=== PATIENT | male | born 1990 | race Two or more races ===

== ENCOUNTER 2023-09-23 16:18 | Emergency (ER) | payer SELFPAY ==
[~2023-09-23] VITALS: Ht 175.3 cm; Wt 167.8 kg
[2023-09-23] MEDS ORDERED: IBUP-1455 PO (18:37)
[2023-09-23] MEDS ORDERED: CEPH500C PO (18:37)
[2023-09-23] MEDS ORDERED: BACDST PO (18:37)
[2023-09-23 18:51] LABS: Urine Bacteria FEW /hpf (None Seen); Urine Blood 2+ /uL (Negative); Urine Budding Yeast FEW /hpf (None Seen); Urine Clarity Turbid (Clear); Urine Color Light-Orange (Yellow); Urine Protein, UAD 1+ (Negative); Urine Urobilinogen Normal (Negative); Urine WBC 41 /hpf (0 - 3); Urine pH 5.5 (5.0-9.0)
[2023-09-23 18:57] VITALS: BP 151/90; PULSE 139; RESP 20; TEMP 100.6; O2SAT 96
[2023-09-23] MEDS: KETOROLAC TROMETH 30 MG/ML 1ML VIAL IM ONE (19:24)
[2023-09-23] MEDS: cefTRIAXone SOD 1,000 MG VL IM ONE (19:24)
== END 2023-09-23 19:35 | disposition home or self-care (01) ==
LOC: ER 16:18
DX: L02.214 Cutaneous abscess of groin (principal); E11.9 Type 2 diabetes mellitus without complications
CPT/HCPCS: 81001; 96372; 99284; J0696; J1885

== ENCOUNTER → 2024-05-17 | Day surgery (SDC) | payer MEDICAID ==
[2024-05-14 11:03] LABS: Urine Bacteria None Seen /hpf (None Seen)
[2024-05-14 11:21] LABS: Urine Blood TRACE /uL (Negative); Urine Clarity Clear (Clear); Urine Color Light-Yellow (Yellow); Urine Protein, UAD Negative (Negative); Urine Urobilinogen Normal (Negative); Urine WBC 6 /hpf (0 - 3)
[2024-05-14 11:28] LABS: Basophils # (auto) 0 10 ^3/uL (0-0.2); Basophils % (auto) 0.4 % (0.0-2.0); Eosinophils # (auto) 0.2 10 ^3/uL (0-0.8); Eosinophils % (auto) 1.8 % (0.0-7.0); Hematocrit 46.6 % (41.0-53.0); Hemoglobin 15.5 g/dL (13.5-17.5); Lymphocytes # (auto) 3.8 10 ^3/uL (0.4-5.4); Lymphocytes % (auto) 36.6 % (10.0-50.0); Mean Corpuscular Hemoglobin 30.6 pg (28.0-32.0); Mean Corpuscular Hgb Conc. 33.3 g/dL (32.0-36.0); Mean Corpuscular Volume 91.8 fL (80.0-100.0); Monocytes # (auto) 0.7 10 ^3/uL (0-1.3); Monocytes % (auto) 6.5 % (0.0-12.0); Neutrophils # (auto) 5.7 10 ^3/uL (1.6-8.6); Neutrophils % (auto) 54.7 % (37.0-80.0); Platelet Count (auto) 248 10^3/uL (140-450); Red Blood Cells 5.07 10^6/uL (4.5-5.90); Red Cell Distribution Width 14.4 % (11.8-14.3); White Blood Cell 10.4 10^3/uL (4.4-10.8)
[2024-05-14 11:44] LABS: INR 0.97 (0.9-1.15); Partial Thromboplastin Time 27.6 SEC (24.5-34.5); Prothrombin Time 10.3 sec (9.3-11.8)
[2024-05-14 12:06] LABS: Anion Gap 5 (5-15); Aspartate Aminotransferase 20 U/L (13-40); BUN/Creatinine Ratio 19.6 (10.0-20.0); Blood Urea Nitrogen 18 mg/dL (9-23); Calcium 9.7 mg/dL (8.7-10.4); Carbon Dioxide 28 mmol/L (20-31); Chloride 102 mmol/L (98-107); Potassium 4.4 mmol/L (3.5-5.1)
[2024-05-14 12:07] LABS: Albumin 4.3 g/dL (3.2-4.8); Bilirubin, Total 0.7 mg/dL (0.2-1.0); Total Protein 7.5 g/dL (5.7-8.2)
[2024-05-14 12:09] LABS: Alanine Aminotransferase 52 U/L (7-40); Alkaline Phosphatase 135 U/L (46-116); Glucose 322 mg/dL (74-106); Sodium 135 mmol/L (136-145)
[~2024-05-17] VITALS: Ht 175.3 cm; Wt 168.3 kg
[~2024-05-17] MED LIST: LOSA-533 PO; METF-372 PO; ceFAZolin 2 GM/D5W100ml 100 ML IV ONE
--- NOTE | 2024-05-17 12:23 | DVHNC2 ---
Procedure - Patient with Morbid obesity and has phimosis.Diabetes with glucometer 322 this am. Surgery cancelled. Patient to see his PCP for better glucose control. BINU KIRBY MD May 17, 2024 12:23
== END | disposition home or self-care (01) ==
LOC: SUR 08:59
PROVIDERS: ATTEND Urology
DX: N47.1 Phimosis (principal); Z53.8 Procedure and treatment not carried out for other reasons; E11.9 Type 2 diabetes mellitus without complications; F17.210 Nicotine dependence, cigarettes, uncomplicated; F15.90 Other stimulant use, unspecified, uncomplicated; E66.01 Morbid (severe) obesity due to excess calories; Z68.43 Body mass index [BMI] 50.0-59.9, adult; Z79.84 Long term (current) use of oral hypoglycemic drugs; Z98.890 Other specified postprocedural states
CPT/HCPCS: 36415; 80053; 81001; 82962; 85025; 85610; 85730; 87086